=== PATIENT | male | born 1990 | race Asian ===

== ENCOUNTER 2018-12-25 17:09 | Emergency (ER) | payer OTHER ==
[~2018-12-25] VITALS: Ht 177.8 cm; Wt 72.6 kg
[2018-12-25] MEDS ORDERED: NKM (17:30)
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
[2018-12-25 17:56] VITALS: BP 121/89
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
--- NOTE | 2018-12-25 18:11 | NUR ---
ED Nurse Note: Per Benita MARLOW, it's ok to give Soma "a little over half" given as ordered
[2018-12-25] MEDS ORDERED: IBUPROFEN600 MG ORAL (18:18)
[2018-12-25] MEDS ORDERED: ROBAXIN-750750 MG PO (18:18)
--- NOTE | 2018-12-25 18:25 | NUR ---
ER DISCHARGE NOTE: Patient is cleared to be discharged per MACI PARISH, pt is aox4, on room air, with stable vital signs. pt was given dc and prescription instructions, pt was able to verbalize understanding, pt id band removed without complications. pt is able to ambulate with steady gait. pt took all belongings.
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
[2018-12-25 18:27] VITALS: BP 121/89
== END 2018-12-25 18:25 | disposition home or self-care (01) ==
LOC: EMR 18:00
DX: S16.1XXA Strain of muscle, fascia and tendon at neck level, initial encounter (principal); M62.830 Muscle spasm of back; R51 Headache; V43.52XA Car driver injured in collision with other type car in traffic accident, initial encounter; Y92.410 Unspecified street and highway as the place of occurrence of the external cause
CPT/HCPCS: 99283